=== PATIENT | female | born 1990 | race Caucasian/White ===

== ENCOUNTER 2019-03-19 18:40 | Emergency (ER) | payer MEDICAID ==
[~2019-03-19] VITALS: Ht 157.5 cm; Wt 63.5 kg
[2019-03-19 18:42] VITALS: BP 124/74
--- NOTE | 2019-03-19 19:17 | NUR ---
Note undone in [facility], [place] - 03/19/19 at 1943 by [email or web address] 28 YEAR OLD FEMALE COMPLAINS OF NONRADIATING BURNING CHEST PAIN 10/01 PAIN X 2DAYS. PATIENT STATES SHE ALSO HAS PAIN ON HER LEFT BREAST AND THAT HER 6 MONTH OLD BABY HAS BEEN REFUSING TO NURSE FROM IT, BUT STILL LACTATES. PATIENT DENIES N/V. PATIENT IS ALERT AND ORIENTED, BREATHING NONLABORED AND EVEN, BED IN LOWEST POSITION, LOCKED, BED RAIL UPX1. HX - NONE RX - MOTRIN X 0800 (FELT RELIEF FROM MOTRIN) Addendum: 03/19/19 at 1942 by [email or web address] Amendment undone in [facility], [place] - 03/19/19 at 1942 by MEDJJ LEFT BREAST* NOT RIGHT BREAST
--- NOTE | 2019-03-19 19:17 | NUR ---
28 YEAR OLD FEMALE COMPLAINS OF NONRADIATING BURNING CHEST PAIN 6/10 PAIN X 2DAYS. PATIENT STATES SHE ALSO HAS PAIN ON HER RIGHT BREAST AND THAT HER 6 MONTH OLD BABY HAS BEEN REFUSING TO NURSE FROM IT, BUT STILL LACTATES. PATIENT DENIES N/V. PATIENT IS ALERT AND ORIENTED, BREATHING NONLABORED AND EVEN, BED IN LOWEST POSITION, LOCKED, BED RAIL UPX1. HX - NONE RX - MOTRIN X 0800 (FELT RELIEF FROM MOTRIN)
--- NOTE | 2019-03-19 19:35 | NUR ---
BARRIE SAWYER AT BEDSIDE
--- NOTE | 2019-03-19 19:35 | NUR ---
Female Strings Teacher accompanied BARRIE SAWYER for BREAST EXAM
[2019-03-19] MEDS ORDERED: IBUPROFEN 600 MG TAB PO ONE (19:45)
[2019-03-19 20:45] VITALS: BP 124/74
--- NOTE | 2019-03-19 20:45 | NUR ---
Patient discharged with v/s stable. Written and verbal after care instructions given ABOUT BREAST TENDERNESS and explained. Patient alert, oriented and verbalized understanding of instructions. Ambulatory with steady gait. All questions addressed prior to discharge. ID band removed. Patient advised to follow up with PMD. Rx of IBUPROFEN given. Patient educated on indication of medication including possible reaction and side effects. Opportunity to ask questions provided and answered. PATIENT ADVISED TO FOLLOW UP WITH ENDOCRONOLOGIST PER BARRIE SAWYER.
== END 2019-03-19 20:45 | disposition home or self-care (01) ==
LOC: MED 18:40
DX: N64.4 Mastodynia (principal)
CPT/HCPCS: 81025; 99282; 99283

== ENCOUNTER 2022-08-21 10:58 | Emergency (ER) | payer MEDICAID ==
[~2022-08-21] VITALS: Ht 162.6 cm; Wt 93.2 kg
[2022-08-21 11:02] VITALS: BP 142/79
--- NOTE | 2022-08-21 11:06 | NUR ---
RIGHT EYE PAIN (6/10), REDNESS, SWELLING, DRAINAGE ONSET YESTERDAY. DENIES FEVERS, DENIES INJURY, DENIES VISION CHANGES.
[2022-08-21] MEDS ORDERED: POLY10SO OP (11:50)
--- NOTE | 2022-08-21 12:01 | NUR ---
Patient discharged with v/s stable. Written and verbal after care instructions CONJUTIVITIES given and explained. Patient verbalized understanding. Ambulatory with steady gait. All questions addressed prior to discharge. Advised to follow up with PMD. PT. INSTRUCTIONS AND RX INFORMATION GIVEN TO PT. IN [employer] THIS POND TENDER IS [employer] FLUENT
== END 2022-08-21 12:01 | disposition home or self-care (01) ==
LOC: MED 10:58
DX: H10.89 Other conjunctivitis (principal); B96.89 Other specified bacterial agents as the cause of diseases classified elsewhere; Z79.899 Other long term (current) drug therapy
CPT/HCPCS: 99283

== ENCOUNTER 2023-07-28 22:13 | Emergency (ER) | payer MEDICAID, OTHER ==
[~2023-07-28] VITALS: Ht 160 cm; Wt 87.1 kg
[~2023-07-28 22:13] MED LIST: POLY10SO OP
[2023-07-28 22:35] VITALS: BP 125/82; PULSE 92; RESP 18; TEMP 97.9; O2SAT 100
[2023-07-29] MEDS: FLUORESCEIN OPTH STRIP 1 MG OP ONE (02:07)
[2023-07-29] MEDS: TETRACAINE HCL/PF 0.5% OPTH 4 ML BTL OP ONE (02:07)
[2023-07-29] MEDS ORDERED: CILOS OP (02:35)
[2023-07-29] MEDS ORDERED: IBUPROFEN 400 MG TAB PO ONE (02:40)
[2023-07-29] MEDS ORDERED: ACETAMINOPHEN EXTRA STRENGTH 500 MG TAB PO ONE (02:40)
[2023-07-29 02:43] VITALS: BP 130/74; PULSE 78; RESP 20; TEMP 98.1; O2SAT 99
== END 2023-07-29 02:40 | disposition home or self-care (01) ==
LOC: MED 22:13
DX: H10.9 Unspecified conjunctivitis (principal); H53.19 Other subjective visual disturbances; Z79.899 Other long term (current) drug therapy
CPT/HCPCS: 99283

== ENCOUNTER 2023-08-08 18:44 | Emergency (ER) | payer OTHER ==
[~2023-08-08 18:44] MED LIST changes: +CILOS OP
== END 2023-08-08 20:38 | disposition left against medical advice (07) ==
LOC: MED 18:44
DX: R10.9 Unspecified abdominal pain (principal); Z53.21 Procedure and treatment not carried out due to patient leaving prior to being seen by health care provider

== ENCOUNTER 2023-11-07 17:01 | Emergency (ER) | payer OTHER ==
[~2023-11-07] VITALS: Ht 165.1 cm; Wt 83.9 kg
[2023-11-07 17:15] VITALS: BP 131/73; PULSE 90; RESP 18; TEMP 98; O2SAT 98
[2023-11-07 17:58] LABS: BASOPHILS % (AUTO) 0.5 % (0.0-2.0); EOSINOPHILS % (AUTO) 0.5 % (0.0-4.0); HEMATOCRIT 40.7 % (36-48); HEMOGLOBIN 13.6 g/dL (12.0-16.0); LYMPHOCYTES # (AUTO) 3.2 K/uL (2.5-16.5); LYMPHOCYTES % (AUTO) 36.4 % (20.5-51.1); MEAN CORPUSCULAR HEMOGLOBIN 29 pg (27-31); MEAN CORPUSCULAR HGB CONC 34 g/dL (33-37); MEAN CORPUSCULAR VOLUME 85.9 fL (80-94); MONOCYTES # (AUTO) 0.4 K/uL (0.8-1.0); MONOCYTES % (AUTO) 4.7 % (1.7-9.3); NEUTROPHILS # (AUTO) 5.1 K/uL (1.8-7.7); NEUTROPHILS % (AUTO) 57.9 % (42.2-75.2); PLATELET COUNT (AUTO) 208 K/uL (140-450); RED BLOOD CELL COUNT(AUTO) 4.74 MIL/uL (4.20-5.40); RED CELL DISTRIBUTION WIDTH 13.4 % (11.6-13.7); WHITE BLOOD COUNT (AUTO) 8.9 K/uL (4.8-10.8)
[2023-11-07 18:06] LABS: INR 0.95 (0.8-1.2)
[2023-11-07 18:07] LABS: ANION GAP 10.7 (8-16); CARBON DIOXIDE 27.7 mmol/L (21-32); CREATININE 0.9 mg/dL (0.6-1.3); POTASSIUM 3.4 mmol/L (3.5-5.1)
[2023-11-07 18:13] LABS: BILIRUBIN,DIRECT 0.1 mg/dL (0.0-0.3); TOTAL BILIRUBIN 0.4 mg/dL (0.0-1.0); TOTAL PROTEIN, SERUM 7.6 g/dL (6.4-8.2)
[2023-11-07] MEDS: KETOROLAC 30 MG/ML VIAL IVP ONE (18:15)
[2023-11-07] MEDS ORDERED: ACET-8905 PO (18:34)
[2023-11-07] MEDS ORDERED: IBUP-2218 PO (18:34)
== END 2023-11-07 18:50 | disposition home or self-care (01) ==
LOC: MED 17:01
DX: K80.20 Calculus of gallbladder without cholecystitis without obstruction (principal); Z79.1 Long term (current) use of non-steroidal anti-inflammatories (NSAID); Z79.2 Long term (current) use of antibiotics; Z79.899 Other long term (current) drug therapy
CPT/HCPCS: 36415; 80048; 80076; 83690; 85025; 85610; 96374; 99283; J1885